=== PATIENT | female | born 1985 | race Asian ===

== ENCOUNTER 2018-04-29 07:59 | Day surgery (SDC) | payer OTHER ==
[~2018-04-29] VITALS: Ht 144.8 cm; Wt 67.7 kg
[~2018-04-29 07:59] MED LIST: BEN25 PO; FERR240T9 PO; HC1C30 TOP; HYDR-843 PO; LORA10TA3 PO; PRENAT PO
[2018-04-29] MEDS ORDERED: MULTI VITAMINS (08:57)
[2018-04-29 09:18] VITALS: Ht 144.8 cm; Wt 67.7 kg
[2018-04-29 09:23] VITALS: BP 120/81; PULSE 89; RESP 19
[2018-04-29] MEDS ORDERED: FENTAnyl 50 MCG/ML VIAL ONE (09:56)
[2018-04-29] MEDS ORDERED: MIDAZOLAM 1 MG/ML 2 ML INJ ONE ×2 (09:56→09:57)
[2018-04-29 10:12] VITALS: BP 101/59; PULSE 74; RESP 22
== END 2018-04-29 11:10 | disposition home or self-care (01) ==
LOC: GIL 07:59
PROVIDERS: ATTEND Internal Medicine Gastroenterology
DX: K64.8 Other hemorrhoids (principal); K64.4 Residual hemorrhoidal skin tags
CPT/HCPCS: 45378; 84703; J2250; J3010; Z7610

== ENCOUNTER 2018-06-15 14:14 | Emergency (ER) | payer SELFPAY ==
[~2018-06-15 14:14] MED LIST changes: -BEN25 PO; -FERR240T9 PO; -HC1C30 TOP; -HYDR-843 PO; -LORA10TA3 PO; +MULTI VITAMINS; -PRENAT PO
[2018-06-16] MEDS ORDERED: GUAI120L41 PO (10:45)
[2018-06-16] MEDS ORDERED: D-ME118S24 PO (10:45)
[2018-06-16] MEDS ORDERED: BECL10.6 IH (10:46)
== END 2018-06-15 16:15 | disposition left against medical advice (07) ==
LOC: E/R 14:14
DX: Z53.21 Procedure and treatment not carried out due to patient leaving prior to being seen by health care provider (principal)

== ENCOUNTER 2018-06-16 09:31 | Emergency (ER) | payer OTHER ==
[~2018-06-16] VITALS: Ht 160 cm; Wt 68.7 kg
[2018-06-16 09:36] VITALS: BP 117/67; PULSE 73; RESP 18; Ht 160 cm; Wt 68.7 kg
[2018-06-16] MEDS ORDERED: GUAI120L41 PO (10:45)
[2018-06-16] MEDS ORDERED: D-ME118S24 PO (10:45)
[2018-06-16] MEDS ORDERED: BECL10.6 IH (10:46)
--- NOTE | 2018-06-16 10:50 | ERD ---
ER Documentation Chief Complaint Chief Complaint cough/congestion x more than a week HPI 33-year-old female presents for cough times 3 days. Patient states she was seen by her primary care physician was given ibuprofen and antibiotics without relief. She also has been taking dmjc-ktv-ablyhfw Robitussin without relief. She also states that she has headache. She denies nausea, vomiting, diarrhea. No significant past medical history. She states the cough is throughout the night. ROS All systems reviewed and are negative except as per history of present illness. Medications Home Meds Active Scripts Beclomethasone Dipropionate (Qvar Redihaler (40 MCG)) 10.6 Gm Hfa.aeroba, 10.6 GM IH BID for cough/shortness of breath for 7 Days, #1 INH Prov:SHRUTHI JARA 06/16/18 D-Methorphan Hb/P-Epd HCl/Bpm (Ueeymgmppb-Akjuiiekaae-Nu Syr) 118 Ml Syrup, 5 ML PO Q4H PRN for COUGH, #1 BOTTLE Prov:SHRUTHI JARA DO 06/16/18 Guaifenesin/Codeine Phosphate (Codeine-Guaifen 10-100 mg/5 ml) 120 Ml Liquid, 5 ML PO Q4H PRN for COUGH, #1 BOTTLE Prov:JARASHRUTHI 06/16/18 Reported Medications [multi-vitamins] No Conflict Check 04/29/18 Allergies Allergies: Coded Allergies: No Known Drug Allergies (Verified Allergy, Unknown, 04/29/18) PMhx/Soc History of Surgery: Yes ( 2014) Anesthesia Reaction: No Hx Neurological Disorder: No Hx Respiratory Disorders: No Hx Cardiac Disorders: No Hx Psychiatric Problems: No Hx Miscellaneous Medical Probl: No Hx Alcohol Use: No Hx Substance Use: No Hx Tobacco Use: No Physical Exam Vitals Vital Signs Date Temp Pulse Resp B/P (MAP) Pulse Ox O2 O2 Flow FiO2 Time Delivery Rate 06/16/18 96.2 73 18 117/67 100 09:36 (84) Physical Exam Const: No acute distress Head: Atraumatic Eyes: Normal Conjunctiva ENT: Normal External Ears, bilateral tympanic membrane intact without erythema or bulging noted, nose and Mouth examination normal, no tonsillar swelling or exudate noted Neck: Full range of motion. No meningismus. Resp: Clear to auscultation bilaterally, no wheezing, rales, rhonchi Cardio: Regular rate and rhythm, no murmurs Skin: No petechiae or rashes Ext: No cyanosis, or edema Neur: Awake and alert Psych: Normal Mood and Affect Procedures/MDM Medical Decision Making: Differential diagnosis includes but not limited to upper respiratory infection, pneumonia, sepsis, meningitis. Patient appeared well on physical examination, nontoxic appearing. Lungs were clear to auscultation bilaterally. There is low suspicion for pneumonia, sepsis, meningitis. Patient likely has an upper respiratory infection, likely viral. Therefore antibiotics not indicated. Discussed symptomatic treatment with patient who agrees with plan. Patient given prescription for Robitussin AC and advised to use only at nighttime to help her with sleep also. Patient was given prescription for Bromfed for daytime use. Patient also given prescription for Qvar. Patient advised to follow up with PCP in 1-2 days. Patient advised to return to ED for new or worsening symptoms. Patient stable on discharge from the ED. Disclaimer: Inadvertent spelling and grammatical errors are likely due to EHR/dictation software use and do not reflect on the overall quality of patient care. Also, please note that the electronic time recorded on this note does not necessarily reflect the actual time of the patient encounter. Departure Diagnosis: Primary Impression: Cough Condition: Fair Patient Instructions: Uri, Viral, No Abx (Adult) Referrals: [facility] (PCP) Additional Instructions: Call your primary care doctor TOMORROW for an appointment during the next 1-2 days.See the doctor sooner or return here if your condition worsens before your appointment time. SHRUTHI JARA DO Jun 16, 2018 10:50
== END 2018-06-16 11:25 | disposition home or self-care (01) ==
LOC: FTE 09:31
DX: R05 Cough (principal)
CPT/HCPCS: 99283

== ENCOUNTER 2018-09-25 00:22 | Emergency (ER) | payer OTHER ==
[~2018-09-25] VITALS: Ht 144.8 cm; Wt 67.5 kg
[~2018-09-25 00:22] MED LIST changes: +BECL10.6 IH; +D-ME118S24 PO; +GUAI120L41 PO
[2018-09-25 00:38] VITALS: BP 105/51; PULSE 82; RESP 18; Ht 144.8 cm; Wt 67.5 kg
[2018-09-25] MEDS ORDERED: MECL12.574 PO (02:54)
--- NOTE | 2018-09-25 03:34 | ERD ---
ER Documentation Chief Complaint Chief Complaint dizziness x 3 days. saw pmd yesterday for same HPI This patient is a 33-year-old female with past medical history of vertigo presenting to the emergency department with complaints of feelings of the room spinning intermittently for the past 2 days. She tried no medication for relief of symptoms. She states symptoms onset suddenly when moving her head side to side, and then spontaneously resolved. She denies any ear pain, syncope, headache, neck pain, fevers, chills, or other symptoms at this time. She has had similar symptoms in the past and was diagnosed with vertigo. ROS All systems reviewed and are negative except as per history of present illness. Medications Home Meds Active Scripts Meclizine Hcl* (Antivert*) 12.5 Mg Tab, 12.5 MG PO Q6H PRN for DIZZINESS, #20 TAB Prov:KYLAH JOHNS PA-C 09/25/18 Beclomethasone Dipropionate (Qvar Redihaler (40 MCG)) 10.6 Gm Hfa.aeroba, 10.6 GM IH BID for cough/shortness of breath for 7 Days, #1 INH Prov:SHRUTHI JARA DO 06/16/18 D-Methorphan Hb/P-Epd HCl/Bpm (Rcncfvofae-Jqcfhmtfvqt-Wn Syr) 118 Ml Syrup, 5 ML PO Q4H PRN for COUGH, #1 BOTTLE Prov:SHRUTHI JARA DO 06/16/18 Guaifenesin/Codeine Phosphate (Codeine-Guaifen 10-100 mg/5 ml) 120 Ml Liquid, 5 ML PO Q4H PRN for COUGH, #1 BOTTLE Prov:SHRUTHI JARA DO 06/16/18 Reported Medications [multi-vitamins] No Conflict Check 04/29/18 Allergies Allergies: Coded Allergies: No Known Drug Allergies (Verified Allergy, Unknown, 04/29/18) PMhx/Soc History of Surgery: Yes ( 2014) Anesthesia Reaction: No Hx Neurological Disorder: No Hx Respiratory Disorders: No Hx Cardiac Disorders: Yes (HLD) Hx Psychiatric Problems: No Hx Miscellaneous Medical Probl: No Hx Alcohol Use: No Hx Substance Use: No Hx Tobacco Use: No Smoking Status: Never smoker FmHx Family History: No diabetes Physical Exam Vitals Vital Signs Date Temp Pulse Resp B/P (MAP) Pulse Ox O2 O2 Flow FiO2 Time Delivery Rate 09/25/18 98.4 82 18 105/51 99 00:38 (69) Physical Exam Const: No acute distress Head: Atraumatic Eyes: Normal Conjunctiva ENT: Normal External Ears, Nose and Mouth. Neck: Full range of motion. No meningismus. Resp: Clear to auscultation bilaterally Cardio: Regular rate and rhythm, no murmurs Skin: No petechiae or rashes Back: No midline or flank tenderness Ext: No cyanosis, or edema Neur: Awake and alert. No neurological deficits. Psych: Normal Mood and Affect Procedures/MDM 33-year-old female presenting to the emergency department with signs and symptoms most consistent with benign positional vertigo.I have low suspicion for central cause of the patient's symptoms as her symptoms have completely resolved at this time and there are no neurological deficits. Patient is tried no medication at home for relief of symptoms and I will prescribe meclizine. She was advised to have close primary care follow-up and return to the department immediately for any new or worsening or concerning symptoms. She was in agreement with the diagnosis, plan, need for follow-up, and return precautions. Departure Diagnosis: Primary Impression: Vertigo Condition: Fair Patient Instructions: Inner Ear Problems: Causes of Dizziness (Vertigo), Vertigo, Unspecified Additional Instructions: Call your primary care doctor TOMORROW for an appointment during the next 1-2 days.See the doctor sooner or return here if your condition worsens before your appointment time. KYLAH JOHNS PA-C Sep 25, 2018 03:34
== END 2018-09-25 03:50 | disposition home or self-care (01) ==
LOC: FTE 00:22
DX: R42 Dizziness and giddiness (principal)
CPT/HCPCS: 99282